=== PATIENT | male | born 1950 | race Hispanic/Latino ===

== ENCOUNTER → 2020-02-25 | Emergency (ER) | payer MEDICARE ==
[~2020-02-25] VITALS: Ht 172.7 cm; Wt 72.6 kg
[~2020-02-25] MED LIST: ALBUTEROL SULF 0.083% NEB SOLN 3 ML NEB INH PRN; ALBUTEROL0.63 MG/3; ASPIRIN 81 MG ENTERIC COATED PO SCH; ATORVASTATIN 20 MG TAB PO SCH; ATORVASTATIN CA40 MG PO; BENZONATATE100 MG PO; BUMETANIDE0.25 MG/1 IV; CEFEPIME 1GM/NS 0.9% 50 ML 50 ML IV STA; CEFTRIAXONE SOD 1 GM/NS 50 ML 50 ML IV SCH; CLOPIDOGREL BISULFATE 75 MG TAB PO ONE; CLOPIDOGREL BISULFATE 75 MG TAB PO SCH; CLOPIDOGREL75 MG PO; DESLORATADINE5 MG PO; DIGOXIN125 MCG PO; ESBRIET267 MG; ESBRIET801 MG; FAMOTIDINE20 MG PO; FUROSEMIDE INJ 10 MG/ML 4 ML VIAL IV ONE; LOSARTAN POTASS25 MG PO; METOPROLOL TART25 MG PO; OPSUMIT10 MG; REVATIO20 MG PO; SODIUM CHLORIDE 0.9% 1000ML 1,000 ML IV SCH; SODIUM CHLORIDE 0.9% 1000ML 1,000 ML IV STA; SODIUM CHLORIDE 0.9% 1000ML 1,000 ML SCH; SPIRONOLACTONE 25 MG TAB PO SCH; SPIRONOLACTONE25 MG PO
[2020-02-25 12:47] LABS: BASOPHILS # (AUTO) 0.1 (0.0-0.1); BASOPHILS % 0.7 % (0.0-1.0); EOSINOPHILS # (AUTO) 0.2 (0.0-0.4); EOSINOPHILS % 1.9 % (0.0-6.0); HEMATOCRIT 50.5 % (38.2-49.6); HEMOGLOBIN 16.3 g/dL (14.0-18.0); LYMPHOCYTES # (AUTO) 1.4 (1.0-3.2); LYMPHOCYTES % 13.6 % (18.0-39.1); MEAN CORPUSCULAR HGB CONC 32.3 g/dL (31-35); MEAN CORPUSCULAR VOLUME 92.8 fL (81-99); MONOCYTES # (AUTO) 1.1 (0.2-0.8); MONOCYTES % 10.5 % (4.4-11.3); NEUTROPHILS # (AUTO) 7.5 (2.1-6.9); NEUTROPHILS % 72.9 % (38.7-80.0); PLATELET COUNT 125 x10e3/uL (140-360); RED BLOOD COUNT 5.44 x10e6/uL (4.3-5.7); RED CELL DISTRIBUTION WIDTH 15.3 % (11.7-14.4)
[2020-02-25 13:10] LABS: ALANINE AMINOTRANSFERASE 58 IU/L (0-55); ALBUMIN 3.3 g/dL (3.5-5.0); ALBUMIN/GLOBULIN RATIO 0.9 (0.8-2.0); ALKALINE PHOSPHATASE 369 IU/L (40-150); ANION GAP 13.6 mmol/L (8-16); BLOOD UREA NITROGEN 26 mg/dL (7-26); BUN/CREATININE RATIO 22 (6-25); CALCIUM 8.2 mg/dL (8.4-10.2); CARBON DIOXIDE 25 mmol/L (22-29); CHLORIDE 102 mmol/L (98-107); CREATINE KINASE 80 IU/L (30-200); CREATININE, SERUM 1.16 mg/dL (0.72-1.25); EST GLOMERULAR FILTRATION RATE > 60 ML/MIN (60-); GLUCOSE 113 mg/dL (74-118); POTASSIUM 3.6 mmol/L (3.5-5.1); SODIUM 137 mmol/L (136-145)
[2020-02-25 15:22] LABS: CREATINE KINASE MB 14.8 ng/mL (0-5.0)
[2020-02-25] MEDS: ENOXAPARIN INJ 80 MG/0.8 ML SYR SC SCH (16:31)
[2020-02-25] MEDS: FUROSEMIDE 40 MG TAB PO SCH (17:25)
[2020-02-25] MEDS: METOPROLOL TARTRATE 25 MG TAB PO SCH (17:25)
[2020-02-25] MEDS: ALBUTEROL/IPRATROPIUM 3 ML NEB NEB SCH (19:22)
[2020-02-25 20:51] LABS: CREATINE KINASE MB 25.1 ng/mL (0-5.0)
[2020-02-26] MEDS: ALBUTEROL/IPRATROPIUM 3 ML NEB NEB SCH ×5 (01:45→13:38)
[2020-02-26 04:41] LABS: BASOPHILS # (AUTO) 0.1 (0.0-0.1); BASOPHILS % 0.7 % (0.0-1.0); EOSINOPHILS # (AUTO) 0.2 (0.0-0.4); EOSINOPHILS % 2.8 % (0.0-6.0); HEMATOCRIT 43.5 % (38.2-49.6); HEMOGLOBIN 14.3 g/dL (14.0-18.0); LYMPHOCYTES # (AUTO) 1.4 (1.0-3.2); LYMPHOCYTES % 16.7 % (18.0-39.1); MEAN CORPUSCULAR HEMOGLOBIN 29.9 pg (28-32); MEAN CORPUSCULAR HGB CONC 32.9 g/dL (31-35); MONOCYTES # (AUTO) 1.1 (0.2-0.8); MONOCYTES % 13.3 % (4.4-11.3); NEUTROPHILS # (AUTO) 5.4 (2.1-6.9); NEUTROPHILS % 66.1 % (38.7-80.0); PLATELET COUNT 105 x10e3/uL (140-360); RED BLOOD COUNT 4.78 x10e6/uL (4.3-5.7); RED CELL DISTRIBUTION WIDTH 15.2 % (11.7-14.4)
[2020-02-26 05:00] LABS: ALANINE AMINOTRANSFERASE 44 IU/L (0-55); ALBUMIN 2.9 g/dL (3.5-5.0); ALKALINE PHOSPHATASE 318 IU/L (40-150); ANION GAP 12.5 mmol/L (8-16); BLOOD UREA NITROGEN 24 mg/dL (7-26); BUN/CREATININE RATIO 21 (6-25); CALCIUM 8.2 mg/dL (8.4-10.2); CARBON DIOXIDE 25 mmol/L (22-29); CHLORIDE 106 mmol/L (98-107); CREATININE, SERUM 1.17 mg/dL (0.72-1.25); EST GLOMERULAR FILTRATION RATE > 60 ML/MIN (60-); GLUCOSE 79 mg/dL (74-118); POTASSIUM 3.5 mmol/L (3.5-5.1); SODIUM 140 mmol/L (136-145)
[2020-02-26 05:01] LABS: CHOL/HDL RATIO 2.8 (3.9-4.7)
[2020-02-26 05:19] LABS: CREATINE KINASE MB 16.6 ng/mL (0-5.0)
[2020-02-26 05:31] LABS: THYROID STIMULATING HORMONE 1.476 uIU/mL (0.350-4.940)
[2020-02-26] MEDS: ENOXAPARIN INJ 80 MG/0.8 ML SYR SC SCH (06:10)
[2020-02-26] MEDS: FUROSEMIDE 40 MG TAB PO SCH (06:10)
[2020-02-26] MEDS: METOPROLOL TARTRATE 25 MG TAB PO SCH (11:39)
[2020-02-26 12:13] LABS: CREATINE KINASE MB 11.2 ng/mL (0-5.0)
[2020-02-26 14:49] VITALS: BP 110/77
[2020-02-27] MEDS: ALBUTEROL/IPRATROPIUM 3 ML NEB NEB SCH (07:00)
== END | disposition home or self-care (01) ==
LOC: ER 12:28 → ERHOLD 14:25 → UNDOADMIN 14:25
DX: I11.0 Hypertensive heart disease with heart failure (principal); J96.21 Acute and chronic respiratory failure with hypoxia; I21.4 Non-ST elevation (NSTEMI) myocardial infarction; J44.9 Chronic obstructive pulmonary disease, unspecified; Z99.81 Dependence on supplemental oxygen; Z88.8 Allergy status to other drugs, medicaments and biological substances; E78.00 Pure hypercholesterolemia, unspecified; I25.10 Atherosclerotic heart disease of native coronary artery without angina pectoris; Z95.5 Presence of coronary angioplasty implant and graft; J84.10 Pulmonary fibrosis, unspecified; E87.2 Acidosis; I27.81 Cor pulmonale (chronic); Z20.822 Contact with and (suspected) exposure to COVID-19
CPT/HCPCS: 36415; 71045; 80053; 82550; 82553; 83605; 83880; 84484; 85025; 87040; 93005; 93306; 94640; J0692; J0696; J1650; J1940; J7030; U0002; 80061; 84443; 99285